=== PATIENT | female | born 1935 | race Native Hawaiian/Other Pacific Islander ===

== ENCOUNTER 2016-04-17 20:56 | Emergency (ER) | payer OTHER ==
[~2016-04-17 20:56] MED LIST: AMLO2.5T PO; ATEN50TA36 PO; CALCIUM CARBON600 MG PO; ENALAPRIL20 MG PO; ESCITALOPRAM10 MG PO; FLUOCINONIDE0.05 % TOP; KLOR-CON M2020 MEQ PO; PHEN200T3 PO; TRAZ50TA36 PO; VITAMIN D32000 UNI1 PO
== END 2016-04-17 22:16 | disposition home or self-care (01) ==
LOC: ED 20:56
PROC: 0HQ0XZZ Repair Scalp Skin, External Approach (ICD-10-PCS; principal; 2016-04-17)
DX: S01.01XA Laceration without foreign body of scalp, initial encounter (principal); W01.198A Fall on same level from slipping, tripping and stumbling with subsequent striking against other object, initial encounter; Y92.231 Patient bathroom in hospital as the place of occurrence of the external cause
CPT/HCPCS: 90715